=== PATIENT | male | born 1990 | race Caucasian/White ===

== ENCOUNTER 2018-12-07 07:32 | Emergency (ER) | payer MEDICAID ==
[~2018-12-07] VITALS: Ht 181.6 cm; Wt 109.0 kg
[2018-12-07] MEDS ORDERED: KETOROLAC 60MG/2ML VIAL IM STA (08:38)
[2018-12-07] MEDS ORDERED: LORAZEPAM 1MG TABLET PO ONE (08:45)
[2018-12-07 10:04] LABS: BASOPHILS % 0.4 % (0.0-2.0); EOSINOPHILS % 1.5 % (0.0-5.0); HEMATOCRIT. 40.7 % (42.0-52.0); LYMPHOCYTES % 31.1 % (20.0-50.0); MEAN CORPUSCULAR HEMOGLOBIN 29.9 pg (28.0-32.0); MEAN CORPUSCULAR VOLUME 86.5 fL (80.0-94.0); MEAN PLATELET VOLUME 7.5 fl (7.4-10.4); MONOCYTES % 7.5 % (2.0-8.0); NEUTROPHILS % 59.5 % (40.0-76.0); PLATELET 329 x1000/uL (130-400); RED BLOOD CELL COUNT 4.71 mill/uL (4.7-6.1); RED CELL DISTRIBUTION WIDTH 14.2 % (11.6-14.6)
[2018-12-07 10:08] LABS: CHLORIDE 106 mEq/L (98-107)
[2018-12-07] MEDS ORDERED: ACETAMINOPHEN 325MG TABLET PO STA (10:10)
[2018-12-07 10:12] LABS: ETHANOL BLOOD < 10 mg/dL
[2018-12-07] MEDS ORDERED: TRAMADOL 50MG TABLET PO ONE (12:00)
[2018-12-07 12:38] VITALS: BP 138/78
== END 2018-12-07 12:30 | disposition left against medical advice (07) ==
LOC: ER 07:51
DX: M72.2 Plantar fascial fibromatosis (principal)
CPT/HCPCS: 36415; 73630; 80048; 80307; 80320; 80329; 85025; 96372; 99284; J1885; Z7610; G0480

== ENCOUNTER 2018-12-09 21:18 | Emergency (ER) | payer MEDICAID ==
[~2018-12-09] VITALS: Ht 188 cm; Wt 105.0 kg
[2018-12-09] MEDS ORDERED: LORAZEPAM 2MG/ML CPJ IV ONE (22:45)
[2018-12-09] MEDS ORDERED: SODIUM CHLORIDE 0.9% 1,000 ML IV ONE (22:45)
[2018-12-10 01:01] VITALS: BP 134/79
== END 2018-12-10 01:04 | disposition home or self-care (01) ==
LOC: ER 22:26
DX: F15.10 Other stimulant abuse, uncomplicated (principal); F17.200 Nicotine dependence, unspecified, uncomplicated
CPT/HCPCS: 93005; 96374; 99283; J2060; J7030